=== PATIENT | female | born 1960 | race Caucasian/White ===

== ENCOUNTER → 2017-04-06 | Outpatient (CLI) | payer OTHER ==
[2017-04-06 08:57] LABS: HEMOGLOBIN 13.9 g/dL (12.2-16.2); LYMPH % 33.6 % (10-50.0)
[2017-04-06 09:52] LABS: BUN 14 mg/dL (7-18)
[2017-04-06 09:53] LABS: GFR (ESTIMATED) 87 ML/MIN (59-)
== END ==
LOC: LAB 08:41
PROVIDERS: Otolaryngology
DX: L98.9 Disorder of the skin and subcutaneous tissue, unspecified (principal); Z01.812 Encounter for preprocedural laboratory examination; Z01.811 Encounter for preprocedural respiratory examination; Z01.810 Encounter for preprocedural cardiovascular examination

== ENCOUNTER → 2017-04-13 | Day surgery (SDC) | payer OTHER ==
--- NOTE | 2017-04-13 14:21 | Operative Note ---
Colonoscopy (Samir) Procedure date: 04/13/17 Date of : 62 Procedure:Colonoscopy Colonoscopy with cold snare polypectomy Indications: Mrs. Gatica is a 56-year-old female who is here for initial screening colonoscopy. Her mother recently from stage IV colon cancer diagnosed in her mid 70s. The patient reports no abdominal pain, weight loss, change in her bowel habits or rectal bleeding. Performing Provider: Al Dawson MD Referrring Provider: Samuel Keenan M.D. Sedation: Fentanyl 200 mg IV/Versed 7 mg IV Procedure: Prior to the procedure, a history and physical exam was performed, and patient medications and allergies were reviewed. The risks and benefits of the procedure and the sedation options and risks were discussed with the patient. All questions were answered and informed consent was obtained. Patient identification and proposed procedure were verified by the physician and the nurse. The patient was placed in a left lateral decubitus position. Throughout the procedure, the patient's blood pressure, pulse, and oxygen saturations were monitored continuously. Findings: On digital rectal examination there was normal rectal tone. There were no external hemorrhoids. The colonoscope was introduced through the anal canal to the rectum and advanced to the cecum. The ileocecal valve and appendiceal orifice were identified. The scope was advanced a short distance into the ileum which appeared grossly normal. The scope was then withdrawn into the colon. There were 4 colon polyps identified in the ascending 3 and sigmoid 1. These ranged in size from 3-5 mm and were all removed via cold snare polypectomy. The remaining cecum, ascending, transverse, descending, sigmoid and rectum were grossly normal. There were no other mucosal abnormalities identified. Upon retroflexion within the rectum there were grade 1 internal hemorrhoids. Impressions: 1. Diminutive colonic polyps 4 2. Grade 1 internal hemorrhoids Recommendations: I will follow up the polyp pathology and recommend repeat colonoscopy again in 5 years based upon the patient's family history and polyp histology. I would encourage fiber supplementation on a long-term daily maintenance basis. Complications: None EBL (ml): 0 at 1420
[2017-04-13 15:20] VITALS: BP 106/70
== END ==
LOC: SDC 12:58
PROVIDERS: Internal Medicine Gastroenterology
PROC: 0DBN8ZX Excision of Sigmoid Colon, Via Natural or Artificial Opening Endoscopic, Diagnostic (ICD-10-PCS; 2017-04-13)
PROC: 0DBK8ZX Excision of Ascending Colon, Via Natural or Artificial Opening Endoscopic, Diagnostic (ICD-10-PCS; principal; 2017-04-13 14:00)
DX: Z12.11 Encounter for screening for malignant neoplasm of colon (principal); Z80.0 Family history of malignant neoplasm of digestive organs; K63.5 Polyp of colon; K64.0 First degree hemorrhoids